=== PATIENT | female | born 1995 | race African-American/Black ===

== ENCOUNTER 2017-10-19 11:32 | Emergency (ER) | payer MEDICAID ==
[~2017-10-19] VITALS: Ht 170.2 cm; Wt 69.9 kg
[2017-10-19] MEDS ORDERED: TYLENOL EXTRA500 MG ORAL (12:12)
[2017-10-19] MEDS ORDERED: PSEUDOEPHEDRINE30 MG PO (12:12)
[2017-10-19] MEDS ORDERED: PROMETHAZINE-C118 M1 ORAL (12:12)
--- NOTE | 2017-10-19 12:13 | Emergency Room Report ---
History of Present Illness General Chief Complaint: Upper Respiratory Illness Source: Patient Present Illness [facility] 22-year-old female patient presents ER complaining of cough for the past 2 weeks. patient was complains of congestion during this time. Patient denies fever. Patient reports coughing up sputum, denies hemoptysis. Denies history of asthma. Denies shortness of breath abdominal pain. Denies dysuria or diarrhea. reports recent onset of sore throat and pack pain with deep inspiration. Reports has been taking NyQuil and Mucinex. Denies other acute symptoms. Allergies: Coded Allergies: No Known Allergies (Unverified , 10/19/17) Patient History Past Medical History: see triage record Last Menstrual Period: 10/09/17 Reviewed Nursing Documentation: PMH: Agreed; PSxH: Agreed Nursing Documentation-PMH Past Medical History: No Stated History Review of Systems All Other Systems: negative except mentioned in HPI Physical Exam Vital Signs Date Time Temp Pulse Resp B/P (MAP) Pulse Ox O2 Delivery O2 Flow Rate FiO2 10/19/17 11:42 98.9 83 18 125/73 98 Room Air 99.0 Sp02 EP Interpretation: reviewed, normal General Appearance: well appearing, no apparent distress, alert, GCS 15, non- toxic Head: normocephalic, atraumatic, other - mild frontal sinus tenderness to palpation Eyes: bilateral eye normal inspection, bilateral eye PERRL ENT: hearing grossly normal, normal pharynx, no angioedema, normal voice, TMs + canals normal, uvula midline, moist mucus membranes, nasal congestion Neck: full range of motion Respiratory: lungs clear, normal breath sounds, no rhonchi, no respiratory distress, no accessory muscle use, no wheezing, speaking full sentences Cardiovascular #1: regular rate, rhythm, no edema Musculoskeletal: back normal, digits/nails normal, gait/station normal, normal range of motion, non-tender Neurologic: alert, oriented x3, responsive, motor strength/tone normal, sensory intact Psychiatric: mood/affect normal Medical Decision Making PA Attestation Dr. Beltran is my supervising Physician whom patient management has been discussed with. Diagnostic Impression: Primary Impression: Sinus congestion Additional Impression: Cough ER Course Pt presents to ED c/o cough and congestion. DDX considered but are not limited to viral URI, pneumonia, strep throat, rhinitis, sinusitis, otitis media. Lungs clear, patient is afebrile, low suspicion for pneumonia, will not order CXR at this time. On PE, chest is TTP; chest pain likely musculoskeletal in nature secondary to cough, does not require cardiac workup at this time. Patient instructed to take NSAIDs as needed for pain symptoms. VITAL SIGNS are WNL, patient is afebrile ER COURSE: PE: Lungs clear to auscultation, no wheezes, rhonci or rales. mild TTP of sinuses, likely due to congestion. Informed patient cough likely secondary to congestion. Will provide treatment for congestion. Symptomatic treatment. Take Tylenol for pain and fever symptoms. Patient is afebrile currently, does not require abx at this time. Followup with PCP for further treatment and/or referral as needed. Patient did not cough while in ER. DISCHARGE: -Rx given for Sudafed -Rx given for Tylenol/Acetaminophen -Rx given for Promethazine with codeine syrup for cough sx. CURES reviewed, no recent rx. May cause drowsiness, take at night prior to sleep. At this time pt is stable for d/c to home. Patient is resting comfortably, in no acute distress, nontoxic appearing. Patient to take medications as instructed Will provide with patient care instructions and any necessary prescriptions. Care plan and follow-up instructions provided. Patient instructed to follow-up with primary care provider in 3 - 5 days. Patient questions asked and answered. Patient reports understanding and agreement to treatment plan. ER precautions given. Patient instructed to return to ER immediately for any new or worsening of symptoms including but not limited to increasing SOB, persistent fever, intractable vomiting. - Please note that this Emergency Department Report was dictated using [employer] project engineer technology software, occasionally this can lead to erroneous entry secondary to interpretation by the dictation equipment. Last Vital Signs Date Time Temp Pulse Resp B/P (MAP) Pulse Ox O2 Delivery O2 Flow Rate FiO2 10/19/17 11:42 98.9 83 18 125/73 98 Room Air 99.0 Disposition: HOME, SELF-CARE Condition: Stable Scripts Pseudoephedrine Hcl* (SUDAFED*) 30 Mg Tablet 30 MG PO Q12HR, #20 TAB Prov: Beau Chan P.A. 10/19/17 Acetaminophen* (TYLENOL EXTRA STRENGTH*) 500 Mg Tablet 500 MG ORAL Q8H PRN for Prn Headache/Temp > 101, #30 TAB 0 Refills Prov: Beau Chan 10/19/17 Codeine/Promethazine Hcl* (PROMETHAZINE-CODEINE SYRUP*) 118 Ml Syrup 5 ML ORAL Q6H PRN for For Cough, #100 ML 0 Refills Prov: Beau Chan 10/19/17 Patient Instructions: Allergic Rhinitis, Cough, Adult, [id number] Additional Instructions: Followup with primary care provider in 3 -5 days. Take medications as directed. Patient questions asked and answered. ER precautions given, patient instructed to return to ER immediately for any new or worsening of symptoms including but not limited to intractable vomiting, chest pain, shortness breath, abdominal pain. Beau Chan October 19, 2017 12:13
[2017-10-19 12:21] VITALS: BP 125/73
[2017-10-19 12:22] VITALS: BP 128/75
== END 2017-10-19 12:24 | disposition home or self-care (01) ==
LOC: EMR 12:10
DX: R05 Cough (principal); R09.81 Nasal congestion
CPT/HCPCS: 99284